=== PATIENT | female | born 1930 | race Caucasian/White ===

== ENCOUNTER 2017-04-18 08:19 | Day surgery (SDC) | payer MEDICARE, BC ==
[~2017-04-18 08:19] MED LIST: Lactated Ringers 1,000 ML IV SCH; Lidocaine 1% 30 ML SDV ONE; Lidocaine 1%/Sod Bicarbonate in NS 8.4% 1 ML Syringe IV PRN; Propofol 200 MG/20 ML SDV ONE; Sodium Chloride 0.9% 10 ML Syringe FLUSH PRN; fentaNYL 100 MCG/2 ML SDV ONE
--- NOTE | 2017-04-18 09:08 | PCM.PREANE ---
Preanesthetic Assessment - Anesthesia/Transfusion/Family Hx Anesthesia History: Prior Anesthesia Without Reaction Family History of Anesthesia Reaction: No Transfusion History: No Prior Transfusion(s) Intubation History: Unknown - Review of Systems General: No Symptoms Pulmonary: No Symptoms Cardiovascular: No Symptoms Gastrointestinal: No Symptoms Neurological: No Symptoms Other: Reports: None, Easy Bleeding, Easy Bruising - Physical Assessment NPO Status Date: 04/17/17 Pulse: 70 O2 Sat by Pulse Oximetry: 92 Respiratory Rate: 15 Blood Pressure: 146/53 Temperature: 36.7 C Height: 1.57 m Weight: 76.204 kg ASA Class: 3 Mental Status: Alert & Oriented x3 Airway Class: Mallampati = 2 Dentition: Reports: Broken Tooth/Teeth Thyro-Mental Finger Breadths: 2 Mouth Opening Finger Breadths: 3 ROM/Head Extension: Full Lungs: Clear to Auscultation, Normal Respiratory Effort Cardiovascular: Irregular Rhythm (Atrial Fibrilation) - Allergies Allergies/Adverse Reactions: Allergies Allergy/AdvReac Type Severity Reaction Status Date / Time dexamethasone Allergy Cannot Verified 04/17/17 16:15 Remember hydrochlorothiazide Allergy Anaphylactic Verified 04/17/17 16:15 [From Maxzide] Shock triamterene [From Maxzide] Allergy Anaphylactic Verified 04/17/17 16:15 Shock - Acknowledgements Anesthesia Type Planned: MAC Pt an Appropriate Candidate for the Planned Anesthesia: Yes Alternatives and Risks of Anesthesia Discussed w Pt/Guardian: Yes Pt/Guardian Understands and Agrees with Anesthesia Plan: Yes PreAnesthesia Questionnaire HEENT History: Reports: Macular Degeneration Other HEENT History: legally blind Cardiovascular History: Reports: Afib, High Cholesterol, Hypertension, [place] Other Cardiovascular History: tri cuspid valve disorders, coronary artherosclerosis Respiratory History: Reports: Other (See Below) Other Respiratory History: pneumonia Gastrointestinal History: Reports: None, Other (See Below) Other Gastrointestinal History: hemoccult pos stool Genitourinary History: Reports: Other (See Below) Other Genitourinary History: renal insufficiency SIGHTER History: Reports: Other Musculoskeletal History: use of cane occassionally Neurological History: Reports: CVA Other Neuro History: CVA x2, cerebrovascular disease Psychiatric History: Reports: Depression Endocrine/Metabolic History: Reports: Hypothyroidism Hematologic History: Other Hematologic History: hx macrocytic anemia, pancytopenia Immunologic History: Reports: None Oncologic (Cancer) History: Reports: None Dermatologic History: Reports: None - Past Surgical History Head Surgeries/Procedures: HEENT Surgical History: Reports: Oral Surgery Cardiovascular Surgical History: Reports: Coronary Artery Bypass Female Surgical History: Reports: D&C Neurological Surgical History: Reports: Lumbar Spine Other Neurological Surgeries/Procedures: back surgery x2 Musculoskeletal Surgical History: Reports: Knee Replacement, Other (See Below) Other Musculoskeletal Surgeries/Procedures:: back surgery Oncologic Surgical History: Reports: None Dermatological Surgical History: Reports: None - SUBSTANCE USE Smoking Status *Q: Never Smoker Second Hand Smoke Exposure: No Recreational Drug Use History: No - HOME MEDS Home Medications: Home Meds Citalopram Hydrobromide [Celexa] 20 mg PO DAILY 11/14/13 [History] Glucosamine [Glucosamine Sulfate] 1,000 mg PO DAILY 11/14/13 [History] Multivitamin [Multivitamins] 1 each PO DAILY 11/14/13 [History] Simvastatin [Zocor] 10 mg PO BEDTIME 11/14/13 [History] amLODIPine [Norvasc] 5 mg PO DAILY 11/14/13 [History] Cholecalciferol (Vitamin D3) [Vitamin D3] 2,000 units PO DAILY 03/19/16 [History ] Flaxseed Oil 1,000 mg PO DAILY 03/19/16 [History] Furosemide [Lasix] 40 mg PO DAILY 03/19/16 [History] Levothyroxine [Synthroid] 50 mcg PO ACBREAKFAST 03/19/16 [History] Losartan Potassium [Cozaar] 100 mg PO DAILY 03/19/16 [History] Calcium Carbonate/Vitamin D3 [Calcium 600 + Vit D 200] 1 tab PO BID 05/09/16 [ History] Magnesium Oxide 250 mg PO DAILY 04/17/17 [History] Warfarin Sodium [Warfarin Sodium] 5 mg PO DAILY 04/17/17 [History] - CURRENT (IN HOUSE) MEDS Current Meds: Current Medications Lactated Ringer's (Ringers, Lactated) 1,000 mls @ 125 mls/hr IV ASDIRECTED MADDIE Lidocaine/Sodium Bicarbonate (Buffered Lidocaine 1% In Ns 8.4%) 0.25 ml IV ONETIME PRN PRN Reason: Prior to IV Start Sodium Chloride (Saline Flush) 10 ml FLUSH ASDIRECTED PRN PRN Reason: Keep Vein Open Discontinued Medications Fentanyl (Sublimaze) Confirm Administered Dose 100 mcg .ROUTE .STK-MED ONE Stop: 04/18/17 07:23 Lidocaine HCl (Xylocaine-Mpf 1%) Confirm Administered Dose 30 ml .ROUTE .STK- MED ONE Stop: 04/18/17 08:19 Propofol (Diprivan 20 Ml) Confirm Administered Dose 200 mg .ROUTE .STK-MED ONE Stop: 04/18/17 07:23
[2017-04-18] MEDS ORDERED: SODIUM CHLORIDE ONE (09:25)
[2017-04-18] MEDS ORDERED: HEPARIN SODIUM ONE (09:25)
[2017-04-18] MEDS ORDERED: Heparin Sodium 5,000 Units/ML Vial ONE (09:26)
--- NOTE | 2017-04-18 09:53 | PCM.OPNOTE ---
- General Post-Op/Procedure Note Date of Surgery/Procedure: 04/18/17 Operative Procedure(s): bone marrow bx Pre Op Diagnosis: pancytopenia Post-Op Diagnosis: Same Anesthesia Technique: MAC Primary Surgeon: Bobby Chakraborty EBL in mLs: 0 Complications: None Condition: Good
--- NOTE | 2017-04-18 09:56 | PCM48HPAN ---
Post Anesthesia Note - EVALUATION WITHIN 48HRS OF ANESTHETIC Vital Signs in Normal Range: Yes Patient Participated in Evaluation: Yes Respiratory Function Stable: Yes Airway Patent: Yes Cardiovascular Function Stable: Yes Hydration Status Stable: Yes Pain Control Satisfactory: Yes Nausea and Vomiting Control Satisfactory: Yes Mental Status Recovered: Yes
[2017-04-18 13:26] VITALS: BP 127/49
--- NOTE | 2017-04-19 08:42 | OR ---
DATE OF OPERATION: 04/18/2017 SURGEON: Bobby Chakraborty MD PREOPERATIVE DIAGNOSIS: Pancytopenia. POSTOPERATIVE DIAGNOSIS: Pancytopenia. OPERATION PERFORMED: Bone marrow biopsy, right posterior iliac spine. ANESTHESIA: Done under local anesthetic IV sedation. DESCRIPTION OF PROCEDURE: The patient was taken to the GI room, placed in supine position, connected to monitoring equipment, given IV sedation. She was placed in left lateral position and the right posterior iliac spine was identified and this was prepped with ChloraPrep and draped off in a sterile fashion. The skin was anesthetized. A small incision was made and using a Profexshidi needle, I aspirated bone, biopsy was obtained and was plated out by Pathology. Once the needle was removed, pressure was placed and she was placed in a supine position. She tolerated the procedure and sent to recovery room in stable condition, will be followed up with and will resume her Coumadin tomorrow. ESTIMATED BLOOD LOSS: 0 mL. MMODAL /[id number]
== END 2017-04-18 12:00 | disposition home or self-care (01) ==
LOC: JD.SDS 08:19
PROVIDERS: ATTEND Surgery
DX: D53.9 Nutritional anemia, unspecified (principal); D70.8 Other neutropenia; D69.6 Thrombocytopenia, unspecified; I25.10 Atherosclerotic heart disease of native coronary artery without angina pectoris; I63.9 Cerebral infarction, unspecified; I10 Essential (primary) hypertension; E78.5 Hyperlipidemia, unspecified; E03.9 Hypothyroidism, unspecified; E66.9 Obesity, unspecified; Z95.1 Presence of aortocoronary bypass graft; Z79.01 Long term (current) use of anticoagulants; Z88.8 Allergy status to other drugs, medicaments and biological substances; Z98.890 Other specified postprocedural states; Z79.899 Other long term (current) drug therapy; Z68.27 Body mass index [BMI] 27.0-27.9, adult
CPT/HCPCS: 36415; 38221; 85025; 85610; 88305; 88311; 88313; J1644; J3010; J7120; 01112; 88184; 88185; 88237; 88264; 88271; 88275; J2704